=== PATIENT | male | born 1985 | race Caucasian/White ===

== ENCOUNTER 2021-08-16 17:04 | Emergency (ER) | payer OTHER ==
[~2021-08-16] VITALS: Ht 185.4 cm; Wt 121.1 kg
[2021-08-16 17:32] LABS: HEMOGLOBIN 18.4 gm/dl (14.0-17.5); RED BLOOD COUNT 5.94 M/UL (4.20-5.50); WHITE BLOOD COUNT 11.4 K/UL (4.5-11.0)
[2021-08-16 17:56] LABS: BUN/CREATININE RATIO 13 (0-10)
[2021-08-16] MEDS ORDERED: LASIX40 MG PO (19:47)
[2021-08-16] MEDS ORDERED: K-TAB ER20 MEQ PO (19:47)
== END 2021-08-16 21:38 | disposition home or self-care (01) ==
LOC: ER1 17:04
PROVIDERS: Physician Assistant Medical
DX: U07.1 COVID-19 (principal); I11.0 Hypertensive heart disease with heart failure; I50.9 Heart failure, unspecified; Z86.79 Personal history of other diseases of the circulatory system
CPT/HCPCS: 71045; 80053; 82550; 82553; 83880; 84484; 85025; 85379; 96374; 99285; J1940; U0002